=== PATIENT | male | born 2000 | race Hispanic/Latino ===

== ENCOUNTER 2023-12-23 09:49 | Outpatient (CLI) | payer OTHER, SELFPAY | END 2023-12-23 09:50 | disposition home or self-care (01) | LOC: ANHAUDIO 09:50 | PROVIDERS: PCP Internal Medicine Infectious Disease; Visit Provider Otolaryngology | DX: H93.13 Tinnitus, bilateral (principal) | CPT/HCPCS: 92557; 92567 ==